=== PATIENT | male | born 1970 | race Caucasian/White ===

== ENCOUNTER 2017-02-12 11:17 | Emergency (ER) | payer SELFPAY ==
[~2017-02-12] VITALS: Ht 170.2 cm; Wt 62.0 kg
[2017-02-12 11:21] VITALS: BP 127/77; PULSE 92; RESP 18; TEMP 97.6; O2SAT 99
[2017-02-12] MEDS ORDERED: BENZ100 PO (11:53)
--- NOTE | 2017-02-12 12:00 | PD ---
HPI Chief Complaint: Cold / Flu Symptoms Time Seen by Provider: 11:45 Travel History International Travel<30 days: No Contact w/Intl Traveler<30days: No Traveled to known affect area: No History of Present Illness HPI 46-year-old male presents to the emergency room for evaluation of sore throat, cough, congestion, and fever for the past 4 days. Patient's reports feeling feverish last night but did not actually take his temperature. States symptoms started with sore throat and progressed from there. States he gets sick like this 4 times a year but wasn't sure if this time he needed antibiotics. He took NyQuil last night and has been gargling with salt water and taking cough drops with mild to moderate relief in symptoms. Denies chronic medical conditions or daily medications. PFSH Past Medical History Medical History: Denies Significant Hx Immunizations Current: Yes Past Surgical History Surgical History: No Previous Surgery Social History Alcohol Use: Yes (SOCIAL) Tobacco Use: No (former) Substance Use: No Allergies-Medications (Allergen,Severity, Reaction): Coded Allergies: No Known Allergies (Unverified , 02/12/17) Reported Meds & Prescriptions Reported Meds & Active Scripts Active Tessalon Perles (Benzonatate) 100 Mg Cap 100 Mg PO TID PRN Review of Systems Except as stated in HPI: all other systems reviewed are Neg Physical Exam Narrative GENERAL: Well-nourished, well-developed male in no acute distress. Afebrile. Ambulatory. SKIN: Focused skin assessment warm/dry. HEAD: Normocephalic. EYES: No scleral icterus. No injection or drainage. NECK: Supple, trachea midline. No JVD or lymphadenopathy. ENT: Mucosa pink and moist. No erythema or exudates. No uvular edema. No uvular , palatal, or tonsillar deviation. Airway patent. Nasal turbinates appear normal without nasal blood, purulent drainage or septal hematoma. EARS: Bilateral pinnae and external canals appear within normal limits. Bilateral tympanic membranes without erythema, dullness or perforation. CARDIOVASCULAR: Regular rate and rhythm without murmurs, gallops, or rubs. RESPIRATORY: Breath sounds equal bilaterally. No accessory muscle use. No crackles, rales, wheezes, or rhonchi. Data Data Last Documented VS Vital Signs Date Time Temp Pulse Resp B/P Pulse Ox O2 Delivery O2 Flow Rate FiO2 02/12/17 11:30 18 02/12/17 11:21 97.6 92 127/77 99 [facility] Medical Decision Making Medical Screen Exam Complete: Yes Emergency Medical Condition: Yes Medical Record Reviewed: Yes Differential Diagnosis URI, pneumonia, bronchitis Narrative Course 46-year-old male presents to the emergency room for evaluation of cough, congestion, and sore throat for the past 4 days. Patient is afebrile and well- appearing in the emergency room. Vital signs stable. Resting comfortably in bed. Physical exam is unremarkable. No evidence of bacterial infection the ears, sinuses, throat, or lungs. He was reassured and given typical duration of viral illnesses. Discharged with prescription for Tessalon Perles. Told to follow-up with a primary care physician and return for worsening symptoms. He understands and agrees to plan. Diagnosis Primary Impression: Upper respiratory infection Qualified Code: J00 - Acute nasopharyngitis Referrals: Primary Care Physician Patient Instructions: General Instructions, Upper Respiratory Infection (ED) Additional Instructions: Rest and drink plenty of fluids. Take Tessalon Perles as directed, as needed for cough. Continue [id number] cough and cold medications as directed on box. Follow-up with a primary care physician. Return to the emergency room for worsening symptoms. Med/Other Pt SpecificInfo: Prescription(s) given Scripts Benzonatate (Tessalon Perles)100 Mg [id number] Mg PO TID PRN (COUGH) #21 CAP Ref 0 Prov:Hayder Weems MD 02/12/17 Disposition: 01 DISCHARGE HOME Condition: Stable Yola Ryan Feb 12, 2017 12:00
== END 2017-02-12 12:05 | disposition home or self-care (01) ==
LOC: PHEFT 11:17
DX: J00 Acute nasopharyngitis [common cold] (principal)
CPT/HCPCS: 99283